=== PATIENT | male | born 1995 | race Caucasian/White ===

== ENCOUNTER 2021-12-22 08:29 | Emergency (ER) | payer BC ==
[2021-12-22] MEDS ORDERED: Levofloxacin 500 MG Tab PO ONE (10:45)
[2021-12-22 13:55] LABS: C. TRACHOMATIS BY PCR DETECTED; N. GONORRHOEAE BY PCR NOT DETECTED
== END 2021-12-22 13:08 | disposition home or self-care (01) ==
LOC: MW.ED 08:29
DX: N39.0 Urinary tract infection, site not specified (principal)
CPT/HCPCS: 74176; 81001; 87086; 87491; 87591; 99284; A9270